=== PATIENT | male | born 1965 ===

== ENCOUNTER 2018-07-16 18:09 | Inpatient (IN) | payer BC ==
[2018-07-16 18:16] VITALS: BMI 25.5
[2018-07-16] MEDS ORDERED: Albuterol-Ipratrop 3 mg / 0.5 (3 ml) UD ONE ×2 (18:19→18:28)
[2018-07-16] MEDS ORDERED: Magnesium Sulfate 1 gm in D5W 2 GM/200 ML BAG IVPB ONE (18:19)
[2018-07-16] MEDS: Magnesium Sulfate 1 gm in D5W 1 GM/100 ML BAG IVPB SCH ×2 (18:30→19:02)
[2018-07-16 18:38] LABS: ABG ALLEN TEST PO; ARTERIAL BLOOD GAS HCO3 21.2 mmol/L (21-28); ARTERIAL BLOOD GAS HEMOGLOBIN 14.5 g/dL (11.7-17.4); ARTERIAL BLOOD GAS O2 SAT 100.2 % (95-98); ARTERIAL BLOOD GAS PCO2 70 mm/Hg (35-45); ARTERIAL BLOOD GAS PH 7.17 (7.35-7.45); ARTERIAL BLOOD GAS PO2 281 mm/Hg (80-100); ARTERIAL BLOOD GAS TCO2 27.6 mmol/L (22-28)
[2018-07-16 18:46] LABS: BASO % 0.4 % (0.0-2.0); EOS # 0.8 K/uL (0.0-0.7); EOS % 7.2 % (0.0-4.0); HEMOGLOBIN 14.7 g/dL (12.0-18.0); LYMPH # 3.7 K/uL (1.0-4.3); LYMPH % 32.8 % (20.0-40.0); MEAN CELL VOLUME 90.5 fL (80.0-94.0); MEAN CORPUSCULAR HEMOGLOBIN 29.6 pg (27.0-31.0); MEAN CORPUSCULAR HGB CONC 32.7 g/dL (33.0-37.0); MEAN PLATELET VOLUME 7.9 fL (7.2-11.7); MONO # 0.9 K/uL (0.0-0.8); MONO % 7.9 % (0.0-10.0); NEUT # 5.8 K/uL (1.8-7.0); NEUT % 51.7 % (50.0-75.0); NRBC % 0.1 % (0.0-2.0); RBC 4.95 Mil/uL (4.40-5.90); RED CELL DISTRIBUTION WIDTH 13.9 % (11.5-14.5); WHITE BLOOD COUNT 11.3 K/uL (4.8-10.8)
[2018-07-16] MEDS ORDERED: Albuterol-Ipratrop 3 mg / 0.5 (3 ml) UD INH STA (18:49)
[2018-07-16 19:01] LABS: CALCIUM 9.9 mg/dl (8.6-10.4)
[2018-07-16 19:02] LABS: ALBUMIN 4.8 g/dL (3.5-5.0); ALT/SGPT 45 U/L (21-72); AST/SGOT 48 U/L (17-59); BLOOD UREA NITROGEN 17 mg/dL (9-20); GFR NON-AFRICAN AMERICAN > 60
[2018-07-16 19:03] LABS: ALB/GLOB RATIO 1.3 (1.0-2.1)
[2018-07-16 19:10] LABS: B-TYPE NATRIURETIC PEPTIDE 39.6 pg/mL (0-900)
[2018-07-16] MEDS ORDERED: Azithromycin 500mg/250ML NS 500 MG/250 ML BAG IVPB STA (19:45)
[2018-07-16] MEDS ORDERED: Azithromycin 500mg/250ML NS 500 MG/250 ML BAG IVPB ONE (19:55)
[2018-07-16] MEDS ORDERED: Albuterol 0.083% Inhal Sol (2.5 mg/3 mL) UD INH ONE (20:00)
[2018-07-16] MEDS ORDERED: Albuterol 0.083% Inhal Sol (2.5 mg/3 mL) UD ONE (20:00)
--- NOTE | 2018-07-16 21:23 | C.PDOC ---
History Of Present Illness 53 y/o male pt with hx of asthma brought to ED by EMS with severe respiratory distress. Sx started [employer] and pt took multiple inhaler doses prior to calling . ALS gave him 1 nebulizer and solumedrol. BiPAP was placed on pt and a ne bulizer. Pt reports cough but denies fever, chills and recent travels. Chief Complaint (Nursing): Respiratory Distress History Per: Patient History/Exam Limitations: no limitations Onset/Duration Of Symptoms: Mins Current Symptoms Are (Timing): Better Past Medical History Reviewed: Historical Data, Nursing Documentation, Vital Signs Vital Signs: Last Vital Signs Temp Pulse 98 H 07/16/18 20:37 Resp 18 07/16/18 20:37 BP 95/65 L 07/16/18 20:37 Pulse Ox 97 07/16/18 20:37 - Medical History PMH: Asthma, HTN Family History: States: No Known Family Hx - Social History Hx Alcohol Use: No Hx Substance Use: No - Immunization History Hx Tetanus Toxoid Vaccination: No Hx Influenza Vaccination: No Hx Pneumococcal Vaccination: No Review Of Systems Except As Marked, All Systems Reviewed And Found Negative. Constitutional: Negative for: Fever, Chills, Other (recent travels) Respiratory: Positive for: Cough, Other (severe respiratory distress) Physical Exam - Physical Exam Appears: Non-toxic, In Acute Distress (severe) Skin: Normal Color, Warm, Dry Head: Normacephalic Eye(s): bilateral: Normal Inspection, PERRL, EOMI Chest: Symmetrical, No Deformity Cardiovascular: Rhythm Regular Respiratory: Decreased Breath Sounds (b/l), Accessory Muscle Use (intercostal), Wheezing (minimal espiratory ) Gastrointestinal/Abdominal: Soft, No Tenderness Extremity: Normal ROM (x4) ED Course And Treatment - Laboratory Results Result Diagrams: 07/16/18 18:38 07/16/18 18:38 ECG: Interpreted By Me, Viewed By Me ECG Rhythm: Sinus Tachycardia ECG Interpretation: Normal, No Acute Changes Interpretation Of ECG: nml axis Rate From EC O2 Sat by Pulse Oximetry: 97 Progress Note: approximately 90 minutes on BiPAP. BiPAP was removed and pt sx has significantly improved. Pt is talking in full sentences. Dr. Melchor Espinoza was notified and pt will be admitted to Telemetry. Critical Care Time - Critical Care Note Total Time (in mins): 90 Documented critical care: time excludes all time spent performing seperately billable procedures. Medical Decision Making Medical Decision Making: Impression: severe respiratory distress Plans: -- ABG -- EKG -- chem labs -- blood work -- CXR -- albuterol -- lovenox -- magnesium sulfate -- protonix -- recephin -- solumedrol -- singulair -- zithromax -- blood cx -- Nebulizer -- peak flow -- Influenza A B Reassess: On reassessment, patient is resting comfortably with no wheezing, chest pain, or retractions. Oxygen saturation and breath sounds have improved. Patient is alert and oriented x 3. Case discussed with Dr. Melchor Espinoza and patient will be admitted to telemetry. Disposition - Disposition Disposition: HOSPITALIZED Disposition Time: 20:00 Condition: GUARDED - Clinical Impression Clinical Impression: Asthma with status asthmaticus - Scribe Statement The provider has reviewed the documentation as recorded by the Scribe Lin Do Provider Attestation: All medical record entries made by the Scribe were at my direction and personally dictated by me. I have reviewed the chart and agree that the record accurately reflects my personal performance of the history, physical exam, medical decision making, and the department course for this patient. I have also personally directed, reviewed, and agree with the discharge instructions and disposition.
[2018-07-16 22:37] VITALS: RESP 20
[2018-07-16] MEDS: MethylPREDNISolone 40 mg Vial IVP SCH (23:10)
[2018-07-17] MEDS: Albuterol-Ipratrop 3 mg / 0.5 (3 ml) UD INH SCH ×3 (01:55→13:07)
[2018-07-17] MEDS: MethylPREDNISolone 40 mg Vial IVP SCH ×2 (06:22→13:45)
[2018-07-17] MEDS ORDERED: Enoxaparin 40 mg Syringe SC SCH (10:00)
[2018-07-17] MEDS ORDERED: Azithromycin 500 MG in Sodium Chloride 0.9% 250 ML IVPB SCH (10:00)
--- NOTE | 2018-07-17 10:31 | RAD ---
Date of service: 07/16/2018 HISTORY: sob COMPARISON: No prior. FINDINGS: LUNGS: No active pulmonary disease. PLEURA: No significant pleural effusion identified, no pneumothorax apparent. CARDIOVASCULAR: No aortic atherosclerotic calcification present. Normal cardiac size. No pulmonary vascular congestion. OSSEOUS STRUCTURES: No significant abnormalities. VISUALIZED UPPER ABDOMEN: Normal. OTHER FINDINGS: None. IMPRESSION: No acute cardiopulmonary disease appreciated.
--- NOTE | 2018-07-17 14:47 | CP.PCM.HP ---
Past Patient History - Past Medical History & Family History Past Medical History?: Yes - Past Social History Smoking Status: Never Smoked - CARDIAC Hx Hypertension: Yes - PULMONARY Hx Asthma: Yes - MUSCULOSKELETAL/RHEUMATOLOGICAL Hx Falls: No - PSYCHIATRIC Hx Substance Use: No Meds Allergies/Adverse Reactions: Allergies Allergy/AdvReac Type Severity Reaction Status Date / Time No Known Allergies Allergy Verified 07/16/18 20:47 Physical Exam - Constitutional Appears: Well - Head Exam Head Exam: ATRAUMATIC, NORMAL INSPECTION, NORMOCEPHALIC - Eye Exam Eye Exam: EOMI, Normal appearance, PERRL Pupil Exam: NORMAL ACCOMODATION, PERRL - ENT Exam ENT Exam: Mucous Membranes Moist, Normal Exam - Respiratory Exam Respiratory Exam: Decreased Breath Sounds - Cardiovascular Exam Cardiovascular Exam: REGULAR RHYTHM, +S1, +S2 - GI/Abdominal Exam GI & Abdominal Exam: Diminished Bowel Sounds, Soft - Rectal Exam Rectal Exam: Deferred Results - Vital Signs Recent Vital Signs: Last Vital Signs Temp 98.4 F 07/17/18 08:02 Pulse 97 H 07/17/18 08:02 Resp 20 07/17/18 08:02 BP 122/76 07/17/18 08:02 Pulse Ox 99 07/17/18 08:02 - Labs Result Diagrams: 07/16/18 18:38 07/16/18 18:38 Labs: Laboratory Results - last 24 hr 07/16/18 07/16/18 07/16/18 18:35 18:38 18:38 WBC 11.3 H RBC 4.95 Hgb 14.7 Hct 44.9 MCV 90.5 MCH 29.6 MCHC 32.7 L RDW 13.9 Plt Count 322 MPV 7.9 Neut % (Auto) 51.7 Lymph % (Auto) 32.8 [place] % (Auto) 7.9 Eos % (Auto) 7.2 H Baso % (Auto) 0.4 Neut # (Auto) 5.8 Lymph # (Auto) 3.7 [place] # (Auto) 0.9 H Eos # (Auto) 0.8 H Baso # (Auto) 0.0 Puncture Site Lr pCO2 70 H pO2 281 H HCO3 21.2 ABG pH 7.17 L* ABG Total CO2 27.6 ABG O2 Saturation 100.2 H ABG Base Excess -4.7 L ABG Hemoglobin 14.5 ABG Carboxyhemoglobin 1.9 H POC ABG HHb (Measured) -0.2 L ABG Methemoglobin 1.1 David Test Po A-a O2 Difference 59.0 Respiratory Index 0.2 Hgb O2 Saturation 97.1 Vent Mode Bipap FiO2 60.0 Inspiratory BiPAP 16 Expiratory BiPAP 5 Crit Value Called To Dr. warren Crit Value Called By Chance duffy Crit Value Read Back Y Blood Gas Notified Time 1838 Sodium 142 Potassium 5.2 Chloride 102 Carbon Dioxide 27 Anion Gap 18 BUN 17 Creatinine 0.8 Est GFR ( Amer) > 60 Est GFR (Non-Af Amer) > 60 Random Glucose 131 H Calcium 9.9 Phosphorus 5.8 H Magnesium 1.9 Total Bilirubin 0.8 AST 48 ALT 45 Alkaline Phosphatase 77 Troponin I < 0.0120 NT-Pro-B Natriuret Pep 39.6 Total Protein 8.4 H Albumin 4.8 Globulin 3.6 Albumin/Globulin Ratio 1.3 Influenza Typ A,B (EIA) 07/16/18 19:27 WBC RBC Hgb Hct MCV MCH MCHC RDW Plt Count MPV Neut % (Auto) Lymph % (Auto) [place] % (Auto) Eos % (Auto) Baso % (Auto) Neut # (Auto) Lymph # (Auto) [place] # (Auto) Eos # (Auto) Baso # (Auto) Puncture Site pCO2 pO2 HCO3 ABG pH ABG Total CO2 ABG O2 Saturation ABG Base Excess ABG Hemoglobin ABG Carboxyhemoglobin POC ABG HHb (Measured) ABG Methemoglobin David Test A-a O2 Difference Respiratory Index Hgb O2 Saturation Vent Mode FiO2 Inspiratory BiPAP Expiratory BiPAP Crit Value Called To Crit Value Called By Crit Value Read Back Blood Gas Notified Time Sodium Potassium Chloride Carbon Dioxide Anion Gap BUN Creatinine Est GFR ( Amer) Est GFR (Non-Af Amer) Random Glucose Calcium Phosphorus Magnesium Total Bilirubin AST ALT Alkaline Phosphatase Troponin I NT-Pro-B Natriuret Pep Total Protein Albumin Globulin Albumin/Globulin Ratio Influenza Typ A,B (EIA) Negative for flu a/b
[2018-07-17 18:03] VITALS: BP 161/89; PULSE 104; TEMP 98.3; O2SAT 98
--- NOTE | 2018-07-18 12:50 | CARD ---
APPROVED REPORT Date of service: 07/16/2018 EKG Measurement Heart [id number] <Conclusion> Sinus tachycardia Otherwise normal ECG
== END 2018-07-17 19:30 | disposition left against medical advice (07) | DRG 203 ==
LOC: C.ER 18:09 → C.6T 20:23 → C.9E 21:03 → C.6T 21:34
PROVIDERS: ADMIT Internal Medicine Nephrology; ATTEND Internal Medicine Nephrology
DX: J45.902 Unspecified asthma with status asthmaticus (principal); I10 Essential (primary) hypertension